=== PATIENT | male | born 1960 | race Caucasian/White ===

== ENCOUNTER 2018-02-28 07:51 | Inpatient (IN) | payer OTHER ==
[~2018-02-28] VITALS: Ht 182.9 cm; Wt 145.1 kg
[2018-02-28] VITALS (16 sets, daily range): BP systolic 87–147; BP diastolic 62–99
[~2018-02-28 07:51] MED LIST: ADVAIR 250/501 DISK IH; ADVAIR 500/501 DISK IH; ALBUTEROL SULF8.5 GM IH; ALKA-SELTZER PLUS PO; ATROVENT 0.02% IH; Albuterol 0.5% Inhal IH; BACTRIM,SEPT1 TABLET PO; CEFTRIAXONE2 G1 IM; CENTRUM SILVER1 EAC3 PO; CRESTOR10 MG PO; Ceftin PO; ENDOCET 5-3251 EACH PO; Glucophage PO; IBUPROFEN800 MG PO; INCRUSE ELLI62.5 MCG IH; LEVAQUIN500 MG PO; METFORMIN HCL500 MG PO; MOTRIN800 MG PO; NICOTINE PATCH1 EAC2 TD; NORCO 5/3251 TABLET PO; OMNICEF300 MG PO; PREDNISONE1 MG PO; PREDNISONE10 MG PO; Proventil,Ventolin H IH; SPIRIVA RESPIMAT4 GM IH; SPIRIVA1 INHALATI IH; THERAFLU COLD1 EAC3 PO; THERAFLU COLD1 EAC4 PO; TRAMADOL HCL50 MG PO; TYLENOL EXTRA500 MG PO; Tamiflu PO; VENTOLIN HFA18 GM IH; VITAMIN B-1000 MCG/1 PO; WELLBUTRIN XL300 MG PO; XARELTO20 MG PO; predniSONE PO
[2018-02-28 08:27] LABS: INTER. NORMALIZED RATIO 1.1
[2018-02-28 08:29] LABS: BASOPHIL (%) 1.1 % (0-1); BASOPHIL COUNT 0.2 K/uL (0-0.1); EOSINOPHIL (%) 5.3 % (0-5); EOSINOPHIL COUNT 0.7 K/uL (0-0.3); HEMATOCRIT 50.4 % (38.0-50.0); HEMOGLOBIN 16.7 G/DL (12.5-16.6); IMMATURE GRANULOCYTE (%) 0.4 % (0.0-0.7); LYMPHOCYTE (%) 16.5 % (15-42); LYMPHOCYTE COUNT 2.2 K/uL (1.0-2.8); MCH 29.8 PG (29.0-34.0); MCHC 33.1 G/DL (30.0-36.0); MCV 89.8 FL (86-99); MONOCYTE (%) 6.1 % (3-12); MONOCYTE COUNT 0.8 K/uL (0-0.8); NEUTROPHIL (%) 70.6 % (45-76); NEUTROPHIL COUNT 9.5 K/uL (1.8-6.4); PLATELET COUNT 274 K/uL (156-360); PTT 33.8 SEC (25-37); RBC DIS.WIDTH-CV 14.8 % (11.8-14.6); RBC DIS.WIDTH-SD 49.1 % (39-53); RED BLOOD COUNT 5.61 M/uL (4.00-5.50); WHITE BLOOD COUNT 13.4 K/uL (4.1-10.2)
[2018-02-28 08:40] LABS: TROP-I INTERPRETATION NEGATIVE; TROPONIN-I 0.07 ng/mL (0.0-0.30)
[2018-02-28 08:52] LABS: AMYLASE 58 IU/L (1-118); CHLORIDE 102 mEq/L (99-109); POTASSIUM 4.9 mEq/L (3.7-5.4); SODIUM 139 mEq/L (136-147)
[2018-02-28 08:54] LABS: GLUCOSE 180 mg/dL (70-99)
[2018-02-28 08:57] LABS: SERUM ETHYL ALCOHOL < 10 mg/dL
[2018-02-28 08:59] LABS: UREA NITROGEN (BUN) 19 mg/dL (9-23)
[2018-02-28 09:01] LABS: LIPASE 62 U/L (1.0-51.0)
[2018-02-28 09:04] LABS: CREATININE 0.9 mg/dL (0.6-1.3); GFR ESTIMATE (CALCULATED) > 59 mL/min/ (58.99-99999)
[2018-02-28] MEDS ORDERED: INVOKANA300 MG PO (12:20)
[2018-02-28] MEDS ORDERED: FISH OIL 1,2001 EAC3 PO (12:21)
[2018-02-28] MEDS ORDERED: UREA198.6 GM TP (12:21)
[2018-02-28] MEDS ORDERED: NYSTATIN15 GM TP (12:22)
[2018-02-28 20:36] LABS: CK-MB 61.4 ng/mL (0.0-4.9)
[2018-02-28 20:49] LABS: CKMB RELATIVE INDEX 7.3 (0.0-3.9); CREATINE KINASE 836 IU/L (1-294); TOTAL CK 836 IU/L (1-294)
[2018-02-28 20:54] LABS: TROP-I INTERPRETATION POSITIVE; TROPONIN-I 60.33 ng/mL (0.0-0.30)
[2018-03-01] VITALS (13 sets, daily range): BP systolic 87–134; BP diastolic 57–79
[2018-03-01 08:00] LABS: BASOPHIL (%) 0.7 % (0-1); BASOPHIL COUNT 0.1 K/uL (0-0.1); EOSINOPHIL (%) 2.7 % (0-5); EOSINOPHIL COUNT 0.4 K/uL (0-0.3); HEMATOCRIT 46.1 % (38.0-50.0); HEMOGLOBIN 15.1 G/DL (12.5-16.6); IMMATURE GRANULOCYTE (%) 0.4 % (0.0-0.7); LYMPHOCYTE (%) 14.4 % (15-42); LYMPHOCYTE COUNT 2.2 K/uL (1.0-2.8); MCH 28.8 PG (29.0-34.0); MCHC 32.8 G/DL (30.0-36.0); MCV 87.8 FL (86-99); MONOCYTE (%) 7.1 % (3-12); MONOCYTE COUNT 1.1 K/uL (0-0.8); NEUTROPHIL (%) 74.7 % (45-76); NEUTROPHIL COUNT 11.3 K/uL (1.8-6.4); PLATELET COUNT 269 K/uL (156-360); RBC DIS.WIDTH-SD 47.6 % (39-53); RED BLOOD COUNT 5.25 M/uL (4.00-5.50); WHITE BLOOD COUNT 15.2 K/uL (4.1-10.2)
[2018-03-01 08:19] LABS: CHLORIDE 105 MEQ/L (99-109); POTASSIUM 4.4 MEQ/L (3.7-5.4); SODIUM 138 MEQ/L (136-147)
[2018-03-01 08:24] LABS: CREATINE KINASE 377 IU/L (1-294); TOTAL CK 377 IU/L (1-294)
[2018-03-01 08:25] LABS: CREATININE 0.7 MG/DL (0.6-1.3); GFR ESTIMATE (CALCULATED) > 59 mL/min/ (58.99-99999); GLUCOSE 144 mg/dL (70-99); UREA NITROGEN (BUN) 11 mg/dL (9-23)
[2018-03-01 08:26] LABS: TROP-I INTERPRETATION POSITIVE; TROPONIN-I 26.61 ng/mL (0.0-0.30)
[2018-03-01 09:00] LABS: CKMB RELATIVE INDEX 6.1 (0.0-3.9)
[2018-03-02] VITALS: BP 84/54
[2018-03-02 04:00] VITALS: BP 123/83
[2018-03-02 07:15] VITALS: BP 114/85
[2018-03-02 07:43] LABS: CHLORIDE 102 MEQ/L (99-109); CREATININE 0.7 MG/DL (0.6-1.3); GFR ESTIMATE (CALCULATED) > 59 mL/min/ (58.99-99999); GLUCOSE 152 mg/dL (70-99); POTASSIUM 4.3 MEQ/L (3.7-5.4); SODIUM 138 MEQ/L (136-147); UREA NITROGEN (BUN) 13 mg/dL (9-23)
[2018-03-02 08:19] VITALS: BP 105/70
[2018-03-02] MEDS ORDERED: ATORVASTATIN CA80 MG PO (11:28)
[2018-03-02] MEDS ORDERED: CLOPIDOGREL75 MG PO (11:28)
[2018-03-02] MEDS ORDERED: LISINOPRIL5 MG PO (11:28)
[2018-03-02] MEDS ORDERED: ASPIR-LOW81 MG PO (11:28)
[2018-03-02] MEDS ORDERED: NITROSTAT0.4 MG SL (11:28)
[2018-03-02] MEDS ORDERED: LOPRESSOR25 MG PO (11:28)
== END 2018-03-02 12:33 | disposition home or self-care (01) | DRG 247 ==
LOC: EME 07:51 → ENRESERV 08:39 → EME 08:51 → CATH 08:51 → 4WEST 10:51 → CANRESERV 03-01 12:41 → ENRESERV 03-01 12:41 → 4WEST 03-01 14:05
PROVIDERS: Emergency Medicine; Internal Medicine Cardiovascular Disease; Internal Medicine Interventional Cardiology
DX: I21.09 ST elevation (STEMI) myocardial infarction involving other coronary artery of anterior wall (principal); I25.10 Atherosclerotic heart disease of native coronary artery without angina pectoris; I25.5 Ischemic cardiomyopathy; J44.1 Chronic obstructive pulmonary disease with (acute) exacerbation; E66.01 Morbid (severe) obesity due to excess calories; Z68.41 Body mass index [BMI] 40.0-44.9, adult; I10 Essential (primary) hypertension; E11.9 Type 2 diabetes mellitus without complications; G47.33 Obstructive sleep apnea (adult) (pediatric); F17.210 Nicotine dependence, cigarettes, uncomplicated; E78.5 Hyperlipidemia, unspecified; Z98.61 Coronary angioplasty status; Z86.718 Personal history of other venous thrombosis and embolism; Z99.81 Dependence on supplemental oxygen; Z79.01 Long term (current) use of anticoagulants; Z79.899 Other long term (current) drug therapy; Z79.4 Long term (current) use of insulin
CPT/HCPCS: 80048; 81003; 82150; 82550; 82550 91; 82553; 83036; 83690; 84484; 85025; 85347; 85610; 85730; 86850; 86900; 86901; 87641; 90832; 93005; 93306; 94640; 94640 76; 94660; 94799; 99281; 99285; C1725; C1757; C1769; C1874; C1887; G0480; J0153; J1644; J2250; J3010; J3246